=== PATIENT | female | born 1990 | race Caucasian/White ===

== ENCOUNTER 2018-05-22 10:22 | Outpatient (CLI) | payer BC ==
--- NOTE | 2018-05-22 12:01 | RAD ---
LUMBAR SPINE TWO TO THREE VIEW SERIES: INDICATIONS: Intervertebral disk disease. FINDINGS: There is slight narrowing of disk spaces at the thoracolumbar junction and of the upper to mid lumbar spine. No compression deformity or significant subluxation. Mild sclerosis of the facet joints is seen. Calcifications overlying the pelvis may relate to phleboliths. IMPRESSION: Mild disk space narrowing of the thoracolumbar junction and upper to mid lumbar spine. No acute osseous abnormality. POS: [facility]
--- NOTE | 2018-05-22 12:11 | RAD ---
THORACIC SPINE RADIOGRAPH SERIES 3 VIEWS: INDICATION: Intervertebral disk disease. FINDINGS: Mild disk space narrowing and slight osteophytosis f the thoracic spine are present. There is mainta ined alignment. No compression deformity. A slight convexity curvature is present centered at the m idthoracic spine. IMPRESSION: Mild degenerative disk disease of the thoracic spine. No acute osseous abnormality. POS: [facility]
[2018-05-22 13:14] LABS: #Monocytes 0.4 thou/uL (0.11-0.59); #Neutrophils 3.8 thou/uL (1.40-6.50); %Basophils 0.7 % (0.0-1.0); %Eosinophils 0.9 % (0.0-10.0); %Lymphocytes 19.3 % (21.0-51.0); %Monocytes 7.7 % (0.0-10.0); %Neutrophils 71.4 % (42.0-75.0); Hemoglobin 11.9 g/dL (12.0-16.0); Mean Corpuscular Hemoglobin 28.1 pg (27.0-31.0); Mean Corpuscular Volume 85.2 fL (78.0-98.0); Mean Platelet Volume 11.7 fL (7.4-10.4); Platelet Count 185 thou/uL (130-400); RBC Distribution Width 12.1 % (11.5-14.5); Red Blood Cell (RBC) Count 4.22 mill/uL (4.20-5.40); White Blood Cell (WBC) Count 5.3 thou/uL (4.8-10.8)
[2018-05-22 13:22] LABS: ALT (SGPT) 11 U/L (8-55); AST (SGOT) 13 U/L (5-34); Albumin 4.3 g/dL (3.5-5.0); Alkaline Phosphatase 43 U/L (40-150); Anion Gap 12 mmol/L (10-20); BUN (Urea Nitrogen) 7 mg/dL (7.0-18.7); Bilirubin, Total 0.6 mg/dL (0.2-1.2); Calc. Creatinine Clearance 0 mL/min (70-130); Calcium 9.2 mg/dL (7.8-10.44); Carbon Dioxide 25 mmol/L (22-29); Cardiac Risk 2.7 (Less than 4.5); Chloride 107 mmol/L (98-107); Cholesterol 122 mg/dl (< 200 Desired); Estimated GFR-MDRD 84; Globulin 3.2 g/dL (2.4-3.5); Glucose 88 mg/dL (70-105); HDL Cholesterol 46 mg/dL (>60 Neg Risk); LDL Cholesterol, Calculated 65 mg/dL; Potassium 3.9 mmol/L (3.5-5.1); Protein, Total 7.5 g/dL (6.0-8.3); Sodium 140 mmol/L (136-145); Triglycerides 56 mg/dL (Less than 150)
== END 2018-05-22 10:23 | disposition home or self-care (01) ==
LOC: SCSRAD 10:22
PROVIDERS: ATTEND Nurse Practitioner Family
DX: Z00.00 Encounter for general adult medical examination without abnormal findings (principal); M51.9 Unspecified thoracic, thoracolumbar and lumbosacral intervertebral disc disorder; M48.05 Spinal stenosis, thoracolumbar region
CPT/HCPCS: 36415; 72072; 72100; 80053; 80061; 84443; 85025